=== PATIENT | female | born 1940 | race African-American/Black ===

== ENCOUNTER 2019-06-30 21:10 | Emergency (ER) | payer OTHER ==
[~2019-06-30] VITALS: Ht 157.5 cm; Wt 70.3 kg
[2019-06-30 21:20] VITALS: BP 180/97
--- NOTE | 2019-06-30 21:23 | NUR ---
TO LOBBY A/W BED AMBULATORY
--- NOTE | 2019-06-30 21:53 | NUR ---
PT AMBULATED TO BED 6 WITH FAMILY MEMBER
--- NOTE | 2019-06-30 22:19 | NUR ---
79 Y/O FEMALE C/O LUMP ON OUTSIDE OF VAGINAL WALL X UNKNOWN DYS. PTS FAMILY MEMBER SAID SHE SAW IT YESTERDAY WHEN SHE TOOK HER TO THE RESTROOM AND SAID IT LOOK LIKE A GOLF BALL SIZE LUMP OUTISDE THE VAGINAL WALL WITH A RED APPEARANCE. VSS. A & O X4. STEADY GAIT. PT FAMILY MEMBER ALSO STATES SHE HAS FOUL SMEELING URINE. PT DENIES ANY DYSURIA OR BLOOD IN URINE. DENIES ANY PAIN. NKA. PMH: HTN.
[2019-06-30 23:05] VITALS: BP 180/97
--- NOTE | 2019-06-30 23:05 | NUR ---
Patient discharged with v/s stable. Written and verbal after care instructions given and explained BY DR. ABRAMS. Patient verbalized understanding. Ambulatory with steady gait. All questions addressed prior to discharge. Advised to follow up with PMD.
== END 2019-06-30 23:05 | disposition home or self-care (01) ==
LOC: MED 21:10
DX: N81.4 Uterovaginal prolapse, unspecified (principal); I10 Essential (primary) hypertension
CPT/HCPCS: 99284